=== PATIENT | female | born 1975 | race Asian ===

== ENCOUNTER 2017-05-08 00:50 | Inpatient (IN) | payer SELFPAY ==
[~2017-05-08] VITALS: Ht 163 cm; Wt 67.1 kg
[2017-05-08] MEDS ORDERED: OSC500 PO (01:24)
[2017-05-08] MEDS ORDERED: LACTATED RINGERS 1,000 ML IV SCH (01:24)
[2017-05-08] MEDS ORDERED: OXYTOCIN 20 UNITS in LACTATED RINGERS 1,000 ML IV SCH (01:24)
[2017-05-08] MEDS ORDERED: PREN-546 PO (01:24)
[2017-05-08] MEDS ORDERED: PROMETHAZINE 25 MG/ML VIAL IVP PRN (01:25)
[2017-05-08] MEDS ORDERED: IBUPROFEN 800 MG TAB PO PRN ×2 (01:25→09:05)
[2017-05-08] MEDS ORDERED: CARBOPROST 250 MCG/ML AMP IM PRN (01:25)
[2017-05-08] MEDS ORDERED: METHYLERGONOVINE 0.2 MG/ML AMP IM PRN ×2 (01:25→09:05)
[2017-05-08] MEDS ORDERED: NALBUPHINE 10 MG/ML AMP IVP PRN (01:25)
[2017-05-08] MEDS ORDERED: MISOPROSTOL 25 MCG TAB VG SCH (02:00)
[2017-05-08 02:06] LABS: BASOPHILS % (AUTO) 0.6 % (0.0-2.0); EOSINOPHILS # (AUTO) 0.1 K/uL (0-0.4); HEMATOCRIT 35.9 % (36-48); HEMOGLOBIN 11.8 g/dL (12.0-16.0); LYMPHOCYTES # (AUTO) 1.2 K/uL (2.5-16.5); LYMPHOCYTES % (AUTO) 17.6 % (20.5-51.1); MEAN CORPUSCULAR HEMOGLOBIN 28 pg (27-31); MEAN CORPUSCULAR HGB CONC 33 g/dL (33-37); MEAN CORPUSCULAR VOLUME 86 fL (80-94); MONOCYTES # (AUTO) 0.4 K/uL (0.8-1.0); MONOCYTES % (AUTO) 6.6 % (1.7-9.3); NEUTROPHILS # (AUTO) 4.9 K/uL (1.8-7.7); NEUTROPHILS % (AUTO) 74.2 % (42.2-75.2); PLATELET COUNT (AUTO) 175 K/uL (140-450); RED BLOOD CELL COUNT(AUTO) 4.19 MIL/uL (4.20-5.40); RED CELL DISTRIBUTION WIDTH 11.4 % (11.6-13.7); WHITE BLOOD COUNT (AUTO) 6.7 K/uL (4.8-10.8)
[2017-05-08 02:07] LABS: APPEARANCE,URINE CLEAR (CLEAR); BILIRUBIN,URINE NEGATIVE (NEGATIVE); BLOOD, URINE TRACE-I (NEGATIVE); COLOR,URINE YELLOW (YELLOW); LEUKOCYTE ESTERASE ,URINE NEGATIVE (NEGATIVE); NITRITE, URINE NEGATIVE (NEGATIVE); PH,URINE 6.5 (5.0-9.0); UGLUCOSE NEGATIVE (NEGATIVE)
[2017-05-08] MEDS ORDERED: MISOPROSTOL 25 MCG TAB ONE (02:19)
[2017-05-08 02:23] LABS: ALBUMIN 2.7 g/dL (3.4-5.0); ANION GAP 11.9 (8-16); CARBON DIOXIDE 25.9 mmol/L (21-32); CREATININE 0.5 mg/dL (0.6-1.3); POTASSIUM 3.8 mmol/L (3.5-5.1); TOTAL BILIRUBIN 0.2 mg/dL (0.0-1.0)
[2017-05-08 03:09] VITALS: BP 128/77
[2017-05-08] MEDS ORDERED: BUPIVACAINE 0.125%/NS PREMIX 0 ML ONE (08:26)
[2017-05-08] MEDS ORDERED: OXYTOCIN 10 UNITS/ML VIAL ONE (08:40)
[2017-05-08] MEDS ORDERED: LIDOCAINE MPF 1% - **ER/OR** 5 ML ONE (08:52)
[2017-05-08] MEDS ORDERED: oxyCODONE/APAP 5/325 MG 1 TAB TAB PO PRN (09:05)
[2017-05-08] MEDS ORDERED: TEMAZEPAM 15 MG CAP PO PRN (09:05)
[2017-05-08] MEDS ORDERED: BENZOCAINE/MENTHOL 20%-0.5% 60 GM CAN TP PRN (09:05)
[2017-05-08] MEDS ORDERED: HYDROcodone/APAP 5/325 MG 1 TAB TAB PO PRN (09:05)
[2017-05-08] MEDS ORDERED: OXYTOCIN 10 UNITS/ML VIAL IM PRN (09:05)
[2017-05-08] MEDS ORDERED: MEASLES, MUMPS, AND RUBELLA 1 VIAL SQVAC PRN (09:05)
--- NOTE | 2017-05-08 09:51 | NUR ---
PATIENT HAS BEEN SCREENED AND CATEGORIZED LOW NUTRITION RISK. PATIENT WILL BE SEEN WITHIN 7 DAYS OF ADMISSION. 05/14/[address]
[2017-05-08] MEDS ORDERED: OXYTOCIN 10 UNITS/ML VIAL IM SCH (15:00)
[2017-05-08] MEDS ORDERED: DOCUSATE SOD/SENNA 50/8.6 MG 1 TAB PO SCH (21:00)
[2017-05-08] MEDS ORDERED: INFLUENZA VIRUS VACCINE QUAD 0.5 ML SYR IMVAC SCH (21:05)
[2017-05-09 06:06] LABS: HEMATOCRIT 33.1 % (36-48); HEMOGLOBIN 11.2 g/dL (12.0-16.0)
== END 2017-05-10 15:55 | disposition home or self-care (01) | DRG 774 ==
LOC: MLD 00:50 → MFCC 11:34
PROVIDERS: ADMIT Obstetrics & Gynecology; ATTEND Obstetrics & Gynecology
PROC: 10907ZC Drainage of Amniotic Fluid, Therapeutic from Products of Conception, Via Natural or Artificial Opening (ICD-10-PCS; principal; 2017-05-08)
PROC: 10E0XZZ Delivery of Products of Conception, External Approach (ICD-10-PCS; 2017-05-08)
PROC: 0W8NXZZ Division of Female Perineum, External Approach (ICD-10-PCS; 2017-05-08)
PROC: 3E0234Z Introduction of Serum, Toxoid and Vaccine into Muscle, Percutaneous Approach (ICD-10-PCS; 2017-05-08)
DX: O69.81X0 Labor and delivery complicated by cord around neck, without compression, not applicable or unspecified (principal); O14.95 Unspecified pre-eclampsia, complicating the puerperium; Z23 Encounter for immunization; Z37.0 Single live birth; Z3A.39 39 weeks gestation of pregnancy
CPT/HCPCS: 36415; 59200; 80053; 81003; 85018; 85025; 86592; 86886; 86900; 86901; 90658; 90715; J2001; J2590; J3490; J7120